=== PATIENT | female | born 1985 | race American Indian/Alaskan Native ===

== ENCOUNTER 2017-07-22 10:19 | Emergency (ER) | payer MEDICAID, OTHER ==
[2017-07-22 10:57] VITALS: BP 108/76
[2017-07-22 11:30] VITALS: RESP 18; TEMP 100
--- NOTE | 2017-07-22 12:03 | C.PDOC ---
History Of Present Illness 32 yr old female presents to the ER with complaints of generalized body aches, fever, headache, back pain, abdominal pain and chills for 1 day. Patient denies chest pain, SOB, nausea, vomiting, diarrhea, dysuria or recent travel. Time Seen by Provider: 07/22/17 11:14 Chief Complaint (Nursing): Flu-like Symptoms History Per: Patient History/Exam Limitations: no limitations Onset/Duration Of Symptoms: Days (1) Past Medical History Reviewed: Historical Data, Nursing Documentation, Vital Signs Vital Signs: Last Vital Signs Temp 100 F H 07/22/17 11:29 Pulse 98 H 07/22/17 12:07 Resp 18 07/22/17 12:07 BP 108/76 07/22/17 10:54 Pulse Ox 99 07/22/17 12:07 Family History: States: No Known Family Hx - Social History Hx Tobacco Use: No Hx Alcohol Use: No Hx Substance Use: No - Immunization History Hx Tetanus Toxoid Vaccination: No Hx Influenza Vaccination: No Hx Pneumococcal Vaccination: No Review Of Systems Except As Marked, All Systems Reviewed And Found Negative. Constitutional: Positive for: Fever (Subjective), Chills, Other ((+) Generalized body aches) Cardiovascular: Negative for: Chest Pain Respiratory: Negative for: Shortness of Breath Gastrointestinal: Positive for: Abdominal Pain. Negative for: Nausea, Vomiting , Diarrhea Genitourinary: Negative for: Dysuria Musculoskeletal: Positive for: Back Pain Neurological: Positive for: Headache Physical Exam - Physical Exam Appears: Non-toxic, No Acute Distress, Other ((+) Unhappy) Skin: Warm, Dry Head: Atraumatic, Normacephalic Oral Mucosa: Moist Throat: Normal, No Erythema, No Exudate, No Drooling Neck: Normal, Normal ROM, Supple Chest: Symmetrical, No Tenderness Cardiovascular: Rhythm Regular, Other ((+) Tachy) Respiratory: Normal Breath Sounds, No Rales, No Rhonchi, No Stridor, No Wheezing Gastrointestinal/Abdominal: Normal Exam, Soft, No Tenderness, No Guarding, No Rebound Extremity: Normal ROM, No Swelling Neurological/Psych: Oriented x3, Normal Speech, Normal Motor ED Course And Treatment O2 Sat by Pulse Oximetry: 98 (RA ) Pulse Ox Interpretation: Normal Medical Decision Making Medical Decision Making: PLAN: * Tylenol PO * Motrin PO Disposition Counseled Patient/Family Regarding: Diagnosis, Need For Followup - Disposition Referrals: Luis Nevarez MD [Staff Provider] - Disposition: HOME/ ROUTINE Disposition Time: 12:01 Condition: STABLE Prescriptions: Ibuprofen [Motrin] 600 mg PO TID #15 tab Instructions: Viral Syndrome (ED) Forms: [facility] (Frisian), Work Excuse - POA Present On Arrival: None - Clinical Impression Clinical Impression: Influenza-like illness - Scribe Statement The provider has reviewed the documentation as recorded by the Nahidibe Sheri Collier Provider Attestation: All medical record entries made by the Nahidibe were at my direction and personally dictated by me. I have reviewed the chart and agree that the record accurately reflects my personal performance of the history, physical exam, medical decision making, and the department course for this patient. I have also personally directed, reviewed, and agree with the discharge instructions and disposition.
[2017-07-22 12:09] VITALS: PULSE 98
[2017-07-23 11:36] VITALS: O2SAT 98
== END 2017-07-22 12:08 | disposition home or self-care (01) ==
LOC: C.ER 10:19
DX: J11.1 Influenza due to unidentified influenza virus with other respiratory manifestations (principal)

== ENCOUNTER 2017-07-25 12:00 | Emergency (ER) | payer MEDICAID ==
[2017-07-25 12:11] VITALS: BMI 24.3
[2017-07-25 12:15] VITALS: TEMP 98.4; O2SAT 100
[2017-07-25] MEDS ORDERED: Naproxen 550 mg Tab PO STA (12:36)
[2017-07-25] MEDS ORDERED: Naproxen 550 mg Tab PO ONE (12:47)
[2017-07-25 13:06] LABS: RBC URINE 99 /hpf (0-3); URINE BACTERIA OCC (<OCC); URINE BILIRUBIN NEGATIVE (NEGATIVE); URINE BLOOD 3+ (NEGATIVE); URINE COLOR Amber (YELLOW); URINE GLUCOSE (UA) NORMAL (Normal); URINE KETONE NEGATIVE (NEGATIVE); URINE LEUKOCYTE ESTERASE 2+ Leu/uL (Negative); URINE PROTEIN 2+ mg/dL (NEGATIVE); WBC URINE 130 /hpf (0-5)
--- NOTE | 2017-07-25 14:00 | C.PDOC ---
History Of Present Illness 32 year old female presents to the ED with complaints of intermittent pressure- like headaches for six days. Patient was seen in the ED on Saturday for bodyaches and headache, was told symptoms were viral. Patient was given Motrin and followed up with PMD the next day, who also suspected viral symndrome and gave her Rx for azithromycin. She notes improved body aches, but headache (frontal, pressure-like) persists. She denies fever, nasal discharge, sore throat, cough , or runny nose. Time Seen by Provider: 07/25/17 12:16 Chief Complaint (Nursing): Headache History Per: Patient History/Exam Limitations: no limitations Onset/Duration Of Symptoms: Days (6 days), Intermittent Episodes Current Symptoms Are (Timing): Still Present Severity: Mild Quality: Pressure Preceeding Symptoms: None Associated Symptoms: denies: Photophobia, Blurred Vision, Nausea, Vomiting Past Medical History Reviewed: Historical Data, Nursing Documentation, Vital Signs Vital Signs: Last Vital Signs Temp 98.4 F 07/25/17 12:11 Pulse 89 07/25/17 14:12 Resp 16 07/25/17 14:12 BP 102/69 07/25/17 14:12 Pulse Ox 100 07/25/17 16:25 - Medical History PMH: No Chronic Diseases Family History: States: No Known Family Hx - Social History Hx Tobacco Use: No Hx Alcohol Use: No Hx Substance Use: No - Immunization History Hx Tetanus Toxoid Vaccination: No Hx Influenza Vaccination: No Hx Pneumococcal Vaccination: No Review Of Systems Except As Marked, All Systems Reviewed And Found Negative. Constitutional: Negative for: Fever, Chills ENT: Negative for: Ear Pain, Throat Pain Cardiovascular: Negative for: Chest Pain, Palpitations Respiratory: Negative for: Cough, Shortness of Breath Gastrointestinal: Negative for: Nausea, Vomiting Neurological: Positive for: Headache. Negative for: Weakness, Numbness, Dizziness Physical Exam - Physical Exam Appears: Well, Non-toxic, In Acute Distress (mildly uncomfortable ) Skin: Normal Color, Warm, Dry, No Rash Head: Normacephalic, Tenderness (Tenderness to palpation over frontal and maxillary sinuses ), No Swelling Eye(s): bilateral: Normal Inspection, PERRL, EOMI Ear(s): Bilateral: Normal Nose: Normal, No Discharge Oral Mucosa: Moist Throat: Normal, No Erythema, No Exudate Neck: Supple Chest: Symmetrical, No Deformity Cardiovascular: Rhythm Regular, No Murmur Respiratory: Normal Breath Sounds, No Rhonchi, No Wheezing Neurological/Psych: Oriented x3, Normal Speech, Normal Cognition Gait: Steady ED Course And Treatment O2 Sat by Pulse Oximetry: 100 (room air ) Pulse Ox Interpretation: Normal Progress Note: Patient given PO naprosyn and sudafed. UPreg POC ordered and was (-). Explained to patient that I an agreement that symptoms are likely viral, and that aizthromycin will not be helpful. Reevaluation Time: 14:10 Reassessment Condition: Improved (Patient reassessed, pain has improved and she feels better. Rx for sudafed given, and patient instructed to follow up with PMD in 1-2 days. She understands she should return to Ed if symptoms worsen.) Disposition Counseled Patient/Family Regarding: Diagnosis, Need For Followup, Rx Given - Disposition Referrals: Luis Nevarez MD [Staff Provider] - Disposition: HOME/ ROUTINE Disposition Time: 14:10 Condition: STABLE Additional Instructions: FOLLOW UP WITH YOUR DOCTOR IN 1-2 DAYS USE MEDICATION NEEDED DRINK PLENTY OF FLUIDS RETURN TO ER IF SYMPTOMS WORSEN Prescriptions: Pseudoephedrine [Sudafed] 60 mg PO Q6 PRN #15 tab PRN Reason: Nasal Congestion Forms: [facility] (Montenegrin), General Discharge Instructions Print Language: ESTONIAN - POA Present On Arrival: None - Clinical Impression Clinical Impression: Sinus pressure, Sinus congestion - Scribe Statement The provider has reviewed the documentation as recorded by the Scribrasheeda Swenson All medical record entries made by the Scribe were at my direction and personally dictated by me. I have reviewed the chart and agree that the record accurately reflects my personal performance of the history, physical exam, medical decision making, and the department course for this patient. I have also personally directed, reviewed, and agree with the discharge instructions and disposition.
[2017-07-25 14:13] VITALS: BP 102/69; PULSE 89; RESP 16
== END 2017-07-25 14:13 | disposition home or self-care (01) ==
LOC: C.ER 12:00
DX: J34.89 Other specified disorders of nose and nasal sinuses (principal); R09.81 Nasal congestion

== ENCOUNTER 2017-10-31 18:47 | Emergency (ER) | payer MEDICAID ==
[2017-10-31 18:47] VITALS: BMI 24.3
[2017-10-31] MEDS ORDERED: Sodium Chloride 0.9% 1,000 ML IV ONE (20:13)
[2017-10-31] MEDS ORDERED: Sodium Chloride 0.9% 1,000 ML ONE (20:26)
[2017-10-31 20:30] LABS: BASO # 0.1 K/uL (0.0-0.2); BASO % 0.8 % (0.0-2.0); EOS # 0.1 K/uL (0.0-0.7); EOS % 1.9 % (0.0-4.0); HEMATOCRIT 43.5 % (34.0-47.0); LYMPH # 2.2 K/uL (1.0-4.3); LYMPH % 35.3 % (20.0-40.0); MEAN CELL VOLUME 84.7 fL (81.0-99.0); MEAN CORPUSCULAR HEMOGLOBIN 27.6 pg (27.0-31.0); MEAN CORPUSCULAR HGB CONC 32.6 g/dL (33.0-37.0); MEAN PLATELET VOLUME 8.2 fL (7.2-11.7); MONO # 0.4 K/uL (0.0-0.8); RED CELL DISTRIBUTION WIDTH 14.3 % (11.5-14.5); WHITE BLOOD COUNT 6.4 K/uL (4.8-10.8)
[2017-10-31 20:40] LABS: ALKALINE PHOSPHATASE 56 U/L (38-126); ALT/SGPT 35 U/L (9-52); AST/SGOT 27 U/L (14-36); BILIRUBIN,TOTAL 1.9 mg/dL (0.2-1.3); BLOOD UREA NITROGEN 7 mg/dL (7-17); CALCIUM 9.3 mg/dl (8.6-10.4); CARBON DIOXIDE 23 mmol/L (22-30); CHLORIDE 100 mmol/L (98-107); GFR AFRICAN-AMERICAN > 60; GLUCOSE,RANDOM 89 mg/dL (65-105); POTASSIUM 4.4 mmol/L (3.6-5.2); SODIUM 137 mmol/L (132-148); TOTAL PROTEIN 10.2 g/dL (6.3-8.3)
[2017-10-31 20:46] LABS: ALB/GLOB RATIO 0.9 (1.0-2.1)
[2017-10-31 20:51] LABS: RBC URINE 7 /hpf (0-3); URINE BACTERIA RARE (<OCC); URINE BILIRUBIN NEGATIVE (NEGATIVE); URINE COLOR Yellow (YELLOW); URINE GLUCOSE (UA) NORMAL (Normal); URINE KETONE 1+ mg/dL (NEGATIVE); URINE LEUKOCYTE ESTERASE 2+ Leu/uL (Negative); URINE PROTEIN 1+ mg/dL (NEGATIVE); WBC URINE 27 /hpf (0-5)
[2017-10-31 20:54] LABS: URINE BLOOD 1+ (NEGATIVE)
--- NOTE | 2017-10-31 21:58 | C.PDOC ---
Time Seen by Provider: 10/31/17 19:59 Chief Complaint (Nursing): Abdominal Pain History Per: Patient Onset/Duration Of Symptoms: Days (3) Current Symptoms Are (Timing): Still Present Severity: Moderate Location Of Pain/Discomfort: Diffuse Quality Of Discomfort: Unable To Describe, "Pain" Associated Symptoms: Nausea, Vomiting, Constipation Exacerbating Factors: None Alleviating Factors: None Last Bowel Movement: Days Ago (few) Additional History Per: Prior Records Abnormal Vaginal Bleeding: No Past Medical History Reviewed: Historical Data, Nursing Documentation, Vital Signs Vital Signs: Last Vital Signs Temp 97.8 F 10/31/17 19:37 Pulse 87 10/31/17 19:37 Resp 14 10/31/17 19:37 BP 119/75 10/31/17 19:37 Pulse Ox 99 10/31/17 19:37 - Medical History PMH: No Chronic Diseases Surgical History: No Surg Hx Family History: States: Unknown Family Hx - Social History Hx Tobacco Use: No Hx Alcohol Use: No Hx Substance Use: No - Immunization History Hx Tetanus Toxoid Vaccination: No Hx Influenza Vaccination: No Hx Pneumococcal Vaccination: No Review Of Systems Except As Marked, All Systems Reviewed And Found Negative. Constitutional: Negative for: Fever, Weakness Cardiovascular: Negative for: Chest Pain Respiratory: Negative for: Shortness of Breath Gastrointestinal: Positive for: Nausea, Vomiting, Abdominal Pain, Constipation. Negative for: Diarrhea, Melena, Hematochezia, Hematemesis Genitourinary: Negative for: Dysuria, Frequency Musculoskeletal: Negative for: Neck Pain, Back Pain Skin: Negative for: Rash Neurological: Negative for: Weakness, Numbness Physical Exam - Physical Exam Appears: Non-toxic, No Acute Distress Skin: Normal Color, Warm, Dry, No Rash Head: Atraumatic, Normacephalic Eye(s): bilateral: Normal Inspection, PERRL, EOMI Oral Mucosa: Moist Neck: Normal ROM, Supple Cardiovascular: Rhythm Regular Respiratory: Normal Breath Sounds, No Accessory Muscle Use Gastrointestinal/Abdominal: Bowel Sounds (wnl), Soft, Tenderness (nonspecific), No Distention, No Guarding, No Rebound Back: No CVA Tenderness Extremity: Normal ROM Neurological/Psych: Oriented x3, Normal Motor, Normal Sensation ED Course And Treatment - Laboratory Results Result Diagrams: 10/31/17 20:22 10/31/17 20:22 Lab Interpretation: No Acute Changes Urine POC: Negative O2 Sat by Pulse Oximetry: 99 Pulse Ox Interpretation: Normal - Radiology CXR: Interpreted by Me, Viewed By Me CXR Interpretation: Yes: No Acute Disease - Other Rad Obstructive series X-Ray: Interpreted by Me, Viewed By Me Interpretation: No sign of mechanical obstruction. Constipation. Progress - Interventions Interventions:: Observation, Intravenous fluid - Medications Administered Intravenous: Antiemetic, H-2 kenneth - Data Reviewed Data Reviewed: Lab, Diagnostic imaging, Old records - Patient Status Patient status: Mostly improved - Continuity of Care Discussed patient case with:: Patient, ED Nurse - Patient Plan Patient Plan: Discharge, F/U with PCP Disposition Counseled Patient/Family Regarding: Studies Performed, Diagnosis, Need For Followup, Rx Given - Disposition Referrals: Luis Nevarez MD [Staff Provider] - Disposition: HOME/ ROUTINE Disposition Time: 22:02 Condition: IMPROVED Additional Instructions: Drink plenty of fluids. Follow up with your doctor. Return to the ER if you develop fever, vomiting, worsening of symptoms or if you have any other concerns. Prescriptions: Famotidine [Pepcid] 20 mg PO BID #30 tab Metoclopramide [Reglan] 1 tab PO TID PRN #15 tab PRN Reason: Nausea/Vomiting Polyethylene Glycol 3350 [Miralax] 17 gm PO DAILY #7 packet Instructions: Abdominal Pain (ED) - Clinical Impression Clinical Impression: Abdominal pain, Constipation, Nausea & vomiting
[2017-10-31 22:19] VITALS: BP 118/77; PULSE 78; RESP 18; TEMP 97.5; O2SAT 100
--- NOTE | 2017-11-01 08:52 | RAD ---
PROCEDURE: Radiographs of the chest and abdomen (obstructive series) HISTORY: Abd pain, vomiting, constipation. COMPARISON: None available. TECHNIQUE: AP radiograph of the chest, with upright and supine radiographs of the abdomen. FINDINGS: CHEST: The cardiomediastinal silhouette appears within normal limits of size. Biapical pleural thickening. No focal consolidation, significant pleural effusion, or definite pneumothorax identified.Please note that chest x-ray has limited sensitivity for the detection of pulmonary masses. ABDOMEN AND PELVIS: Nonobstructive bowel gas pattern. No definite free air. Moderate constipation. No acute osseous abnormality is detected. IMPRESSION: Moderate constipation.
== END 2017-10-31 22:19 | disposition home or self-care (01) ==
LOC: C.ER 18:47
DX: K59.00 Constipation, unspecified (principal); R10.9 Unspecified abdominal pain; R11.2 Nausea with vomiting, unspecified
CPT/HCPCS: 74022; 80053; 81001; 83690; 84703; 85025; 96374; 96375; 99284; J2765; J7040

== ENCOUNTER 2017-12-26 19:49 | Emergency (ER) | payer OTHER, MEDICAID ==
[2017-12-26 19:49] VITALS: BMI 24.3
[2017-12-26 20:18] VITALS: BP 116/79; PULSE 79; RESP 18; TEMP 97.9; O2SAT 100
--- NOTE | 2017-12-26 20:38 | C.PDOC ---
History Of Present Illness 32 y/o female complaining of lower right breast pain that radiates into the nipple and toward upper breast. Pain began spontaneously today with no preceding trauma or injury, and she has not tried anything for analgesia. Denies any fever, chills, dimpling, nipple discharge, chest pain shortness of breath or other complaint. Time Seen by Provider: 12/26/17 20:29 Chief Complaint (Nursing): Breast Problem History Per: Patient History/Exam Limitations: no limitations Onset/Duration Of Symptoms: Days (1) Current Symptoms Are (Timing): Still Present Severity: Moderate Quality: "Pain" Additional History Per: Patient Past Medical History Vital Signs: Last Vital Signs Temp 97.9 F 12/26/17 20:15 Pulse 79 12/26/17 20:15 Resp 18 12/26/17 20:15 BP 116/79 12/26/17 20:15 Pulse Ox 100 12/26/17 21:04 - Medical History PMH: No Chronic Diseases Surgical History: No Surg Hx Family History: States: Unknown Family Hx - Social History Hx Tobacco Use: No Hx Alcohol Use: No Hx Substance Use: No - Immunization History Hx Tetanus Toxoid Vaccination: No Hx Influenza Vaccination: No Hx Pneumococcal Vaccination: No Review Of Systems Constitutional: Negative for: Fever, Chills Cardiovascular: Positive for: Other (+breast pain). Negative for: Chest Pain Respiratory: Negative for: Shortness of Breath Skin: Negative for: Rash, Lesions Physical Exam - Physical Exam Appears: Well, No Acute Distress Lymphatic: No Adenopathy (no axillary) Chest: Other (tenderness to the inferior aspect right breast. No erythema or warmth. No induration or fluctuance. No nipple discharge. No masses palpated. ) ED Course And Treatment O2 Sat by Pulse Oximetry: 100 (RA) Pulse Ox Interpretation: Normal Medical Decision Making Medical Decision Making: Impression: Breast Pain Plan: - Urine 901 pm upreg neg, pt given motrin, will d/c and f/u deputy city clerk and pmd, Disposition Counseled Patient/Family Regarding: Diagnosis, Need For Followup - Disposition Referrals: Luis Nevarez MD [Primary Care Provider] - Disposition: HOME/ ROUTINE Disposition Time: 21:02 Condition: STABLE Additional Instructions: Please follow up with your coding assistant and Dr Nevarez in the next few days. Take Ibuprofen or Tylenol for pain. Return to ER for worsening pain, chest pain , shortness of breath or any other concerns. Forms: [facility] (Swazi), General Discharge Instructions - Clinical Impression Clinical Impression: Pain of breast - Scribe Statement The provider has reviewed the documentation as recorded by the Scribe Raquel Menezes
== END 2017-12-26 21:25 | disposition home or self-care (01) ==
LOC: SUPCPDRO 19:49 → C.ER 19:49
DX: N64.4 Mastodynia (principal)